=== PATIENT | female | born 1990 | race Caucasian/White ===

== ENCOUNTER 2016-10-13 21:17 | Emergency (ER) | payer OTHER ==
[~2016-10-13 21:17] MED LIST: ASPI81TA82 PO; CEFU1TAB43 PO
[2016-10-13 21:19] VITALS: BP 146/91; PULSE 122; RESP 16; TEMP 98.8; O2SAT 100
--- NOTE | 2016-10-13 21:32 | PD ---
Physical Exam Time Seen by Provider: 21:30 Narrative 26yo F c/o abscess to L forearm x1week. Denies fever, vomiting. VSS. Patient seen in triage. Awaiting bed placement. Data Data Last Documented VS Vital Signs Date Time Temp Pulse Resp B/P Pulse Ox O2 Delivery O2 Flow Rate FiO2 10/13/16 21:19 98.8 122 16 146/91 [address] [facility] Supervised Visit with DAVID: Ary Romano Oct 13, 2016 21:32
--- NOTE | 2016-10-13 22:09 | PD ---
HPI Chief Complaint: Skin Problem Time Seen by Provider: 22:05 Travel History International Travel<30 days: No Contact w/Intl Traveler<30days: No Traveled to known affect area: No History of Present Illness HPI 26-year-old white female IV drug abuser presents emergency Department with an abscess to her left forearm from shooting up Dilaudid. She states that she uses 3 or 4 times a day. She denies any fever chills. No chest pain or palpitations. Pain is mild. PFSH Past Medical History Narrative Medical Asthma, IVDA Asthma: Yes ( A CHILD) Autoimmune Disease: No Blood Disorders: No Anxiety: No Depression: No Cancer: No Cardiovascular Problems: No Diminished Hearing: No Endocrine: No Genitourinary: Yes (KIDNEY INFECTIONS) Musculoskeletal: No Neurologic: No Psychiatric: No Reproductive: No Respiratory: No ?: Not : 2 Para: 2 Miscarriage: 0 : 1 Past Surgical History Section: No Genitourinary Surgery: Yes (HX OF "ABSCESS ON KIDNEY") Other Surgery: No Social History Alcohol Use: No Tobacco Use: Yes (1/2 PPD) Substance Use: Yes (heroin and Dilaudid) Allergies-Medications (Allergen,Severity, Reaction): Coded Allergies: No Known Allergies (Verified , 10/13/16) Reported Meds & Prescriptions Reported Meds & Active Scripts Active Ceftin 500 Mg Tab (Cefuroxime Axetil) 500 Mg Tab 500 Mg PO BID 10 Days Reported Aspir-81 (Aspirin) 81 Mg Tab 243 Mg PO ONCE Review of Systems Except as stated in HPI: all other systems reviewed are Neg Physical Exam Narrative GENERAL: This is a well-nourished, well-developed patient, in no apparent distress. SKIN: Patient has track tovar on both upper extremities., ecchymoses or lesions. Warm and dry. Patient has a fluctuant abscess to the volar left forearm area this measures 3 x 3 cm. Tender. No pointing. This is from IV drug abuse. HEAD: Atraumatic. Normocephalic. EYES: PERRL, EOMI, no discharge or injection. No scleral icterus. EARS: Clear NOSE: Nasal turbinates appear normal. THROAT: Mucosa pink and moist. Airway patent. NECK: Trachea midline. supple, moves head freely. LUNGS: Clear to auscultation. CV: Regular in rhythm. ABDOMEN: Soft nontender. EXT: No clubbing cyanosis or edema. Data Data Last Documented VS Vital Signs Date Time Temp Pulse Resp B/P Pulse Ox O2 Delivery O2 Flow Rate FiO2 10/13/16 21:19 98.8 122 16 146/91 100 Room Air Orders Bupivacaine Pf 0.5% Inj (Marcaine Pf 0.5 (10/13/16 22:15) Sulfamet-Trimeth Ds 800-160 Mg (Bactrim (10/13/16 22:15) Cephalexin (Keflex) (10/13/16 22:15) MDM Medical Decision Making Medical Screen Exam Complete: Yes Emergency Medical Condition: Yes Medical Record Reviewed: Yes Differential Diagnosis MDM: High Differential diagnoses: Abscess, folliculitis, cellulitis, lymphangitis, abrasion, contact dermatitis Narrative Course Patient is been counseled about IV drug abuse. Incision and drainage of abscess. Patient's given Keflex 500 and Bactrim DS by mouth. Procedures Procedure Narrative I&D abscess: After the risks and benefits were discussed the following procedure was performed. The skin is prepped and draped in the usual sterile fashion using Betadine. The abscess is anesthetized with 1% lidocaine with epinephrine and 0.5% Marcaine. After adequate anesthesia, an 11 blade scalpel is used to make a 2 centimeter central incision. Perulant material is expressed. The wound is cleansed deeply using dilute Betadine and peroxide on Q-tips. The wound is packed open using iodoform gauze. A clean dressing is applied. The patient tolerated the procedure well. There was no complications. Follow-up instructions were given to the patient. Diagnosis Primary Impression: Abscess of left forearm Additional Impression: Intravenous drug abuse Patient Instructions: General Instructions Additional Instructions: Rest. Elevation. keep clean and dry. remove the packing in two days. Daily wound care with soap, water and Neosporin. Three Advil every 6 hours. Keflex and Bactrim DS Follow-up with a primary care doctor in one week. Return to the ER for any problems. Med/Other Pt SpecificInfo: Prescription(s) given, Wound Care Disposition: DISCHARGE HOME Condition: Stable Trent Parr Oct 13, 2016 22:09
[2016-10-13] MEDS ORDERED: CEPH-460 PO (22:10)
[2016-10-13] MEDS ORDERED: BACT800T5 PO (22:10)
[2016-10-13] MEDS ORDERED: SULFAMETHOXAZOLE-TRIMETHOPRIM DS 800-160 MG TAB PO ONE (22:15)
[2016-10-13] MEDS ORDERED: CEPHALEXIN MONOHYDRATE 500 MG CAP PO ONE (22:15)
[2016-10-13] MEDS ORDERED: BUPIVACAINE HCL PF 0.5% 30 ML VIAL EPIDURAL ONE (22:15)
[2016-10-13] MEDS ORDERED: LIDOCAINE 1%/EPINEPHrine 1:100,000 SOLN 20 ML VIAL INFIL ONE (22:15)
== END 2016-10-13 23:10 | disposition home or self-care (01) ==
LOC: NEPK 21:17
DX: L02.414 Cutaneous abscess of left upper limb (principal); F19.10 Other psychoactive substance abuse, uncomplicated; F17.200 Nicotine dependence, unspecified, uncomplicated; Z87.09 Personal history of other diseases of the respiratory system; Z87.448 Personal history of other diseases of urinary system
CPT/HCPCS: 10060